=== PATIENT | male | born 1970 | race Caucasian/White ===

== ENCOUNTER 2024-06-20 12:10 | Inpatient (IN) | payer OTHER, SELFPAY ==
[2024-06-20 10:25] VITALS: BP 140/78
--- NOTE | 2024-06-20 10:29 | ED.GENMED ---
History of Present Illness
<Caroline Hooks PA-C - Last Filed: 06/20/24 11:20>
General
Chief Complaint: Skin Problem
Source: patient
Exam Limitations: none
Time Seen by Provider: 06/20/24 10:28
Nursing documentation reviewed up to this point in time: agreed with
History of Present Illness
History of Present Illness:
This is a 53-year-old male who presents emergency department today with complaints of redness and swelling in his left first finger. Patient reports that he was trying to get his cat into a cat carrier to go to the vet when he accidentally cut his
finger on a cat carrier was unsure if the cat scratched his finger as well. He reports that an hour or so later he started to have some redness and swelling around the site. Patient saw his primary care provider 3 days ago and was started on
Augmentin. Today he is currently on day 3 of Augmentin and states that the wound has not been getting better and states that the wound has started to drain on its own. He denies any fevers or chills, nausea or vomiting, abdominal pain, chest pain,
shortness of breath. He states that the pain will occasionally radiate into his hand but denies any swelling of his hand, lymphadenopathy, streaking up the arm
Past History
<Caroline Hooks PA-C - Last Filed: 06/20/24 11:20>
Past History
ED Past Medical History: None
ED Past Surgical History: None
Social History
Tobacco: Non-smoker
Review of Systems
<Caroline Hooks PA-C - Last Filed: 06/20/24 11:20>
Review of Systems
All Other Systems: ROS reviewed and negative except as documented in HPI and ROS
Phy Exam
<Caroline Hooks PA-C - Last Filed: 06/20/24 11:20>
Physical Exam
Physical Exam:
General: Patient is well appearing and in no acute distress; non-toxic
Skin: Area of fluctuance and erythema noted over the first dip with purulent drainage
Head: Normocephalic, atraumatic
Eyes: Sclera non-icteric. EOMs intact.
Cardiac: Regular rate and rhythm, no murmurs
Peripheral Vascular: Brisk capillary refill
Pulm: Normal respiratory effort
Musculoskeletal: Limited range of motion of left first finger, good extensor strength, tenderness to palpation over the left first DIP, no tenderness to palpation along the flexor sheath.
Neuro: CN II-XII intact, no focal neurologic deficits. Sensation intact.
Psychiatric: Appropriate mood and affect.
Course
<Caroline Hooks PA-C - Last Filed: 06/20/24 11:20>
Orders/Labs/Results
Orders:
Orders
06/20/24 10:54
Wound Culture [Wound/Abscess/Other Culture] Urgent
RADHA Source: Abscess
Specimen Description:
Date Specimen was Collected: 06/20/24
Time Specimen was Collected: 10:53
06/20/24 11:11
IV Insert/Care/Rem.- Treatment PRN
Tetanus/Diphth/Acelpertussis [Adacel] 0.5 ml IM .ONCE ONE
06/20/24 11:30
INFECTIOUS DISEASE CONSULT Routine
Consulting Provider: Keila Epperson
Was physician already notified: Yes
06/20/24 11:32
Complete Blood Count/With Diff Urgent
Comprehensive Metabolic Panel Urgent
06/20/24 11:45
Ampicillin/Sulbactam 3 G [Unasyn] 3 gm 0.9% Sodium Chloride 100 ml [Nss] 100 ml IV NOW
06/20/24 11:52
Admit/Transfer Patient As Directed
Co-Sign Provider:
Level of Care: Inpatient admission
Assign to:: Medical/Surgical
Physician / Group: Keshia/hospitalist
Diagnosis: finger cellulitis
Reason for Hospitalization: finger cellulitis
Expected length of stay greater than two midnights?: Yes
ELOS- Estimated Length of Stay in days: 3
I certify the patient meets the requirements for IP care: Yes
PRN Pain Medication Management As Directed
May give lesser potent ordered pain med per pt: Yes
preference::
Protocol:: Medication orders for pain may be administered in a
manner that supports deferring to patient preference
when the pt is:
- Requesting an ordered lesser potent pain medication.
Least to most potent pain medications are defined
as: acetaminophen < NSAID < tramadol < opioids
(morphine, oxycodone, hydromorphone).
- Requesting a lesser dose of the same medication IF
ORDERED.
- Requesting a less intrusive route of administration
if both routes are prescribed by the provider (PO <
IV).
06/20/24 11:53
Code Status As Directed
Resuscitation Status: Full Code
06/20/24 11:55
Add On- LAB Routine
Tests Added?: HgA1C
Vital Signs
Initial and Last Documented VS:
Initial Vital Signs
Temp Pulse Resp BP Pulse Ox
37.1 C 60 16 140/78 98
06/20/24 10:25 06/20/24 10:25 06/20/24 10:25 06/20/24 10:25 06/20/24 10:25
Last Documented Vital Signs
Temp Pulse Resp BP Pulse Ox
37.1 C 60 16 140/78 98
06/20/24 10:25 06/20/24 10:25 06/20/24 10:25 06/20/24 10:25 06/20/24 10:25
<Tenzin Guardado, - Last Filed: 06/20/24 11:57>
Orders/Labs/Results
Orders:
Orders
06/20/24 10:54
Wound Culture [Wound/Abscess/Other Culture] Urgent
RADHA Source: Abscess
Specimen Description:
Date Specimen was Collected: 06/20/24
Time Specimen was Collected: 10:53
06/20/24 11:11
IV Insert/Care/Rem.- Treatment PRN
Tetanus/Diphth/Acelpertussis [Adacel] 0.5 ml IM .ONCE ONE
06/20/24 11:30
INFECTIOUS DISEASE CONSULT Routine
Consulting Provider: Keila Epperson
Was physician already notified: Yes
06/20/24 11:32
Complete Blood Count/With Diff Urgent
Comprehensive Metabolic Panel Urgent
06/20/24 11:45
Ampicillin/Sulbactam 3 G [Unasyn] 3 gm 0.9% Sodium Chloride 100 ml [Nss] 100 ml IV NOW
06/20/24 11:52
Admit/Transfer Patient As Directed
Co-Sign Provider:
Level of Care: Inpatient admission
Assign to:: Medical/Surgical
Physician / Group: Keshia/hospitalist
Diagnosis: finger cellulitis
Reason for Hospitalization: finger cellulitis
Expected length of stay greater than two midnights?: Yes
ELOS- Estimated Length of Stay in days: 3
I certify the patient meets the requirements for IP care: Yes
PRN Pain Medication Management As Directed
May give lesser potent ordered pain med per pt: Yes
preference::
Protocol:: Medication orders for pain may be administered in a
manner that supports deferring to patient preference
when the pt is:
- Requesting an ordered lesser potent pain medication.
Least to most potent pain medications are defined
as: acetaminophen < NSAID < tramadol < opioids
(morphine, oxycodone, hydromorphone).
- Requesting a lesser dose of the same medication IF
ORDERED.
- Requesting a less intrusive route of administration
if both routes are prescribed by the provider (PO <
IV).
06/20/24 11:53
Code Status As Directed
Resuscitation Status: Full Code
06/20/24 11:55
Add On- LAB Routine
Tests Added?: HgA1C
Vital Signs
Initial and Last Documented VS:
Initial Vital Signs
Temp Pulse Resp BP Pulse Ox
37.1 C 60 16 140/78 98
06/20/24 10:25 06/20/24 10:25 06/20/24 10:25 06/20/24 10:25 06/20/24 10:25
Last Documented Vital Signs
Temp Pulse Resp BP Pulse Ox
37.1 C 60 16 140/78 98
06/20/24 10:25 06/20/24 10:25 06/20/24 10:25 06/20/24 10:25 06/20/24 10:25
<Caroline Hooks PA-C - Last Filed: 06/20/24 11:20>
MDM/Problems Addressed
Differential Diagnosis Includes:
cellulitis, abscess, flexor tenosynovitis
MDM/Problems Addressed:
53-year-old male presents emergency department today with redness and swelling of his left first finger following cat scratch/container cut 3 days ago. He has been on Augmentin this is his third day and he has not been improving. He has no fevers
or chills, no nausea or vomiting. He has limited range of motion of his finger on exam but he is intact sensation. There is purulent drainage from the wound, wound culture obtained. Discussed case with orthopedist on-call, pictures reviewed, we
will plan to admit for IV antibiotics and monitoring for improvement. Case discussed with hospitalist and my attending.
Chronic conditions affecting care:
hlp, htn
<Caroline Hooks PA-C - Last Filed: 06/20/24 11:20>
*Pulse Oximetry
Patient hypoxic: no
*Critical Care Note
Total Time (30-74mins, 75-104mins- exclusive of procedures): Not Applicable
Data Reviewed
Review of Other/Old Records Reveals: Records (Reviewed ER physician documentation from 03/12/2016, patient seen for contusion)
Source: patient and records
<Caroline Hooks PA-C - Last Filed: 06/20/24 11:20>
Patient Management
Escalation/DeEscalation of care consider admission/obs:
admission indicated
ED Attending Note
<Caroline Hooks PA-C - Last Filed: 06/20/24 11:20>
-
Portions of this chart may have been created with voice recognition software.� Occasional wrong word or��sound alike� substitutions may have occurred due to the inherent limitations of voice recognition software.
<Tenzin Guardado DO - Last Filed: 06/20/24 11:57>
ED Attending Note
Patient seen and examined by attending physician: Yes
I performed the substantive portion of visit, reviewed & personally made and approve the management plan that is documented in note by myself or LATOSHA.: Yes
ED Attending Note:
I evaluated patient at bedside. The patient does have purulent drainage from the dorsal aspect of the DIP. I did express additional pus and sending for culture. We contacted Ortho recommends admission with IV antibiotics.
Discharge Plan
Departure
Patient Disposition: Admit
Date of Disposition: 06/20/24
Time of Disposition: 11:20
Admit to: Med/Surg
Presentation/result/management discussed w/ accepting MD/DO: Hospitalist
Patient with high blood pressure during this ER visit?: Yes
Condition: Fair
Discharge Problem:
Cellulitis of left finger
Prescriptions:
No Action
atorvastatin 40 mg Tablet
40 mg PO DAILY
atenolol 50 mg Tablet
50 mg PO DAILY
escitalopram oxalate [Lexapro] 20 mg Tablet
20 mg PO DAILY
Referrals:
Zi Aquino MD [Family Provider] -
Interventions
Interventions:
*Risk Screen - Suicide Last Done: 06/20/24 10:25
*General Assessment Last Done: 06/20/24 10:57
*Neglect/Abuse Screening Last Done: 06/20/24 10:25
ED- Fall Risk Assessment Last Done: 06/20/24 10:57
ED-Skin Assessment Last Done: 06/20/24 10:57
Discharge Date and Time
Print Language: PANAMANIAN
[2024-06-20] MEDS: ADACEL 0.5 ML IM (11:26)
--- NOTE | 2024-06-20 11:31 | HPS.HSE ---
Family Physician
-
Family Physician: Zi Aquino
Chief Complaint
-
L index finger swelling and redness
History of Present Illness
HPI: 53-year-old male with PMH HTN, HLD, anxiety on Lexapro; p/w redness and swelling in his left index finger.
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 He was unsure if the cat scratched his finger as well. His cat is fully vaccinated.
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
His finger redness and swelling did not improve on oral Augmentin, hence he presented to the ED.
He has noted the wound has started to drain on its own.
He denies to any fevers/chills, nausea or vomiting, abdominal pain, chest pain, shortness of breath etc.
Medical History
Past Medical History
Past Medical History: Reports HTN, Hypercholesterolemia and Other (anxiety)
Past Surgical History: Reports Other
Additional Past Surgical History:
distant history of hernia repair
Social History
Tobacco: Non-smoker
Alcohol: Occasional
Personal:
Living: With Family
Family History
Family History: Not pertinent
Allergies / Home Medications
Allergies reflects when Allergies were last updated in [facility].
Home Medications with original date entered in [facility]
Allergy/Medication List:
Allergies
Allergy/AdvReac Type Severity Reaction Status Date / Time
No Known Allergies Allergy Verified 06/20/24 10:27
Home Medications
atenolol 50 mg tablet 50 mg PO DAILY 06/20/24
atorvastatin 40 mg tablet 40 mg PO DAILY 06/20/24
escitalopram oxalate 20 mg tablet (Lexapro) 20 mg PO DAILY 06/20/24
Review of Systems
-
Skin: Reports See HPI and Rash (L index finger )
Physical Exam
Vital Signs
Vital Signs
Temp Pulse Resp BP Pulse Ox
37.1 C 60 16 140/78 98
06/20/24 10:25 06/20/24 10:25 06/20/24 10:25 06/20/24 10:25 06/20/24 10:25
Physical Exam
General: Well Developed, Well Nourished, No Apparent Distress, Comfortable and Conversant
HEENT: NormoCephalic, Moist mucous membranes and Atraumatic
Respiratory: Clear and Accessory Resp Muscle Use; No Decreased Breath Sounds
Cardiac: S1/S2 and Regular Rhythm; No Murmur or Rub
GI: Soft, Non Tender, Non Distended and Normal Bowel Sounds; No Organomegaly
Rectal: Deferred by Provider
Musculoskeletal: No Clubbing, No Cyanosis and No Edema
Skin: Rash and Lesions (L index finger )
Neuro: Awake and Alert
Psych: Calm and Intact Judgment/Insight
Data Reviewed
-
Lab Data: Labs Reviewed by me
Impression/Plan
-
HPI: 53-year-old male with PMH HTN, HLD, anxiety on Lexapro; p/w redness and swelling in his left index finger.
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 He was unsure if the cat scratched his finger as well. His cat is fully vaccinated.
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
His finger redness and swelling did not improve on oral Augmentin, hence he presented to the ED.
He has noted the wound has started to drain on its own.
He denies to any fevers/chills, nausea or vomiting, abdominal pain, chest pain, shortness of breath etc.
A/P:
# cellulitis of left index finger
Follow wound culture
s/p Unasyn in ED, cont cefepime/vancomycin
ED discussed with Ortho, recc IV Abx and OR washout if not improving
ID CS
OT eval
Check A1C for completeness sake (Diabetics are prone to poor wound healing)
# HTN
cont CHEMICAL INSPECTOR Atenolol
# HTN
Cont CHEMICAL INSPECTOR Lipitor
# Anxiety
cont CHEMICAL INSPECTOR Lexapro
DVT ppx: Lovenox SQ
FC
[2024-06-20 11:35] VITALS: BMI 29.2
[2024-06-20 12:02] LABS: % Basophils 0.6 % (0-2); % Eosinophils 3.1 % (0-6); % Immature Granulocytes 0.4 % (0-0.5); % Lymphocytes 18.7 % (20.5-51.1); % Monocytes 8.2 % (1.7-9.3); Absolute Basophils 0.1 10^3/uL (0-0.2); Absolute Eosinophils 0.2 10^3/uL (0-0.7); Absolute Lymphocytes 1.5 10^3/uL (1.2-3.4); Absolute Monocytes 0.6 10^3/uL (0.1-0.6); Absolute Neutrophils 5.4 10^3/uL (1.4-6.5); Hematocrit 40.5 % (39.0-52.0); Hemoglobin 13.8 g/dL (13.0-18.0); Mean Corp Hgb Conc. 34.1 g/dL (33.0-37.0); Mean Corpuscular Hgb 30.7 pg (27.0-31.0); Mean Platelet Volume 10.5 fL (7.4-10.4); Nucleated Red Blood Cells % 0 % (-); Platelet Count 179 10^3/uL (130-400); Red Cell Dist. Width 12.6 % (11.5-14.5); White Blood Cell Count 7.8 10^3/uL (4.8-10.8)
[2024-06-20 12:04] LABS: ALT (SGPT) 23 U/L (0-50); AST (SGOT) 38 U/L (17-59); Albumin 4.2 g/dl (3.5-5.0); Alkaline Phosphatase 61 U/L (38-126); Blood Urea Nitrogen 23 mg/dl (9-20); Calcium 9.1 mg/dl (8.4-10.2); Carbon Dioxide 28 mmol/L (22-30); Chloride 104 mmol/L (98-107); Estimated Creatinine Clearance 82 ml/min; Glucose 115 mg/dl (70-99); Potassium 4.3 mmol/L (3.5-5.1); Sodium 140 mmol/L (135-145); Total Bilirubin 0.3 mg/dl (0.2-1.3); Total Protein 6.7 g/dl (6.3-8.2); eGFR > 60.00
[2024-06-20] MEDS: UNASYN IV (12:17)
[2024-06-20 14:31] VITALS: BP 145/87
[2024-06-20 14:34] VITALS: BMI 29.2
--- NOTE | 2024-06-20 14:38 | PHA.VAN.IN ---
Assessment
- Assessment
Renal Function: Unknown baseline
Renal Function may be Overestimated due to: BMI ALMOST 30
Concomitant Antimicrobials: CEFEPIME
AUC Dosing Plan
- Dosing Variables
Dosing Weight (kg): 87.12
Dosing CrCl (ml/min): 82
Vd coefficient (L/kg): 0.6
- Empiric Dosing
Initial / Loading Dose: 2000mg
Maintenance Regimen: 1000mg q12h
Estimated AUC (mcg*h/mL): 547
Estimated Peak (mcg*h/mL): 32.9
Estimated Trough (mcg/ml): 14.8
Estimated Half Life (H): 9.6
- Monitoring
No levels ordered at this time: consider at steady state
Pharmacokinetics Vancomycin I
- -
Patient Age: 53
Patient Sex: Male
Vancomycin Day #: 1
Indication: Skin And Soft Tissue
Requesting Provider: BETTY
Pertinent Antimicrobial Allergies:
NKDA
Height / Weight:
Height 5 ft 8 in
Actual Weight 87.118 kg
IBW in k.4
- Vital Signs / Lab Results
Temp Pulse Resp BP Pulse Ox
98.4 F 63 18 145/87 97
06/20/24 14:31 06/20/24 14:31 06/20/24 14:31 06/20/24 14:31 06/20/24 14:31
Lab Results - Hematology
06/20/24
11:32
WBC 7.8
Lab Results - Chemistry
06/20/24
11:32
BUN 23 H
Creatinine 1.0
Estimated Creat Clear 82
Albumin 4.2
--- NOTE | 2024-06-20 14:42 | CON.ID ---
Consultation
-
Date/Time Consultation Requested: June 20, 2024 1130
Date/Time Consultation Performed: June 20, 2024 1445
Requesting Provider: Dr. Kasia Schmitt
Performing Provider: Dr. Keila Epperson
Reason for Consultation: Cat bite finger infection
Chief Complaint / Past History
Chief Complaint
Left pointer finger swelling
History of Present Illness
53-year-old male with history of hypertension presented to the hospital today due to worsening left index finger swelling, redness, and pain. 6 days ago on Saturday, he tried to put his pet cat into the cat carrier to take him to the vet. Patient
had difficulty getting his cat into the cage and it was chaotic. He then noted a cut on the dorsum aspect of his distal left index finger. He is unsure whether or not the cut was from cat bite/scratch or from the cat carrier door. The finger
started to become red and swollen. His doctor put him on Augmentin 3 days ago. The redness and swelling progressed. He also noted pus drainage from the cut. He received tetanus shot in the ER today. Otherwise no fevers or chills. His cat is
fully vaccinated.
Past History
Additional Past Medical History:
Hypertension
HLD
Anxiety
Hernia repair
Allergy History:
No Known Allergies Allergy (Verified 06/20/24 10:27)
Medications Reviewed: Yes
Current Antibiotics:
Vancomycin
Cefepime
Social History
Tobacco: Non-Smoker
Alcohol: Occasional
Drug: None
Personal:
Family History
Family History: Not Pertinent
Review of Systems
Review of Systems
General: Negative Fever, Chills or Change in Appetite
HEENT: Negative Sinus Problems or Headache
Cardiovascular: Negative Chest Pain or Dyspnea
Respiratory: Negative Dyspnea or Cough
Gasteroenterology: Negative Nausea, Vomiting or Diarrhea
Genital / Urological: Negative Dysuria or Flank Pain
Endocrine: Negative Weakness
All systems: All other systems were reviewed and were negative
Vital Signs
Temp Pulse Resp BP Pulse Ox
98.4 F 63 18 145/87 97
06/20/24 14:31 06/20/24 14:31 06/20/24 14:31 06/20/24 14:31 06/20/24 14:31
Physical Exam
Physical Exam
Constitutional: No Acute Distress
Eyes: No Conjunctival Hemorrhage and Sclera Anicteric
Cardiovascular: Regular Rate and S1/S2
Pulmonary: Clear
Gastrointestinal: Soft, Non Tender, Non Distended and Normal Bowel Sounds
Genito-Urinary: Negative CVA Tenderness
Extremities: Negative Edema
Wound: Other (left distal phalange dorsal: + edema, erythema, purulent drainage from one end of slit-like wound. erythema extend just past DIPJ. )
Neurological: AO x 3
Lab / Diagnostic Study Results
06/20/24 11:32
06/20/24 11:32
Abs Immat Gran (auto) 0.0 10^3/uL (0-0.05) 06/20/24 11:32
Absolute Neuts (auto) 5.4 10^3/uL (1.4-6.5) 06/20/24 11:32
Absolute Lymphs (auto) 1.5 10^3/uL (1.2-3.4) 06/20/24 11:32
Absolute Monos (auto) 0.6 10^3/uL (0.1-0.6) 06/20/24 11:32
Absolute Basos (auto) 0.1 10^3/uL (0-0.2) 06/20/24 11:32
Immature Gran % 0.4 % (0-0.5) 06/20/24 11:32
Neutrophils % 69.0 % (42.2-75.2) 06/20/24 11:32
Lymphocytes % 18.7 % (20.5-51.1) L 06/20/24 11:32
Monocytes % 8.2 % (1.7-9.3) 06/20/24 11:32
Eosinophils % 3.1 % (0-6) 06/20/24 11:32
Basophils % 0.6 % (0-2) 06/20/24 11:32
Microbiology Results
Micro:
06/20/24 10:54 Wound Culture - Pending
Abscess Gram Stain - Pending
Assessment / Plan
# Left index finger cellulitis, wound with pus drainage.
- Source from cat bite/scratch vs laceration from cat carrier (pt unsure)
- Ordered hand xray.
- Pus cx pending.
- Continue Vanco/cefepime for now.
- Add metronidazole po.
- Will de-escalate abx when cx data available.
[2024-06-20 14:53] LABS: Glycohemoglobin (HgbA1c) 5.6 % (4.0-5.6)
[2024-06-20] MEDS: VANCOCIN 540 MG IV (15:13)
[2024-06-20] MEDS: STERILE WATER FOR INJECTION 10 ML IV ×2 (15:13→23:47)
[2024-06-20] MEDS: MAXIPIME 1000 MG IV ×2 (15:13→23:47)
--- NOTE | 2024-06-20 15:56 | CON.ORTHO ---
Consultation
-
Date/Time Consultation Requested: 06/20/2024
Date/Time Consultation Performed: 06/20/2024
Requesting Provider: Dr. Schmitt
Performing Provider: Tomeka Iyer PA-C, for Dr. Leslie
Reason for Consultation: Left index finger cat scratch; cellulitis
Consultation - Orthopedics
History
HPI: This is a 53-year-old male with a history of hypertension who presented to [facility] earlier today complaining of worsening left index finger swelling, redness, and pain. He states that on Saturday, he attempted to take his cat to the
vet, but in the process of placing him in the carrier, sustained a cut to the dorsum of his left index finger (unsure if a scratch from the cat was involved). He was seen outpatient by his nurse practitioner and placed on Augmentin. He took his
third dose today. He was also encouraged to do warm water soaks, but despite these interventions, experienced increasing redness, swelling, and purulent drainage today. This prompted him to present to the emergency department. He received a
tetanus shot in the ER today. He denies any fevers, chills, or flulike symptoms.
Past medical history: Hypertension, hyperlipidemia, anxiety.
Past surgical history: Hernia repair.
Social history: Denies tobacco use, occasional alcohol consumption. Lives at home with .
Review of systems: All systems reviewed and negative except for those mentioned in HPI.
Allergies / Home Medications
Allergy/AdvReac Type Severity Reaction Status Date / Time
No Known Allergies Allergy Verified 06/20/24 10:27
�Medication �Instructions �Recorded
amoxicillin 875 mg-potassium 1 tab PO BID 06/20/24
clavulanate 125 mg tablet
atenolol 50 mg tablet 50 mg PO DAILY 06/20/24
atorvastatin 40 mg tablet 40 mg PO DAILY 06/20/24
escitalopram oxalate 20 mg tablet 20 mg PO DAILY 06/20/24
(Lexapro)
ibuprofen 200 mg tablet 600 mg PO TIDPRN PRN mild pain 06/20/24
Vital Signs / Lab Results
Temp Pulse Resp BP Pulse Ox
98.4 F 63 18 145/87 97
06/20/24 14:31 06/20/24 14:31 06/20/24 14:31 06/20/24 14:31 06/20/24 14:31
06/20/24 11:32
06/20/24 11:32
Physical examination:
General: Well-developed, well-nourished male in no acute distress. AAOx4.
HEENT: Atraumatic, normocephalic, neck supple.
Lungs: Nonlabored breathing on room air, no audible wheezing.
Heart: Regular rate and rhythm.
Left hand: Index finger with slitlike cut on dorsal aspect of the digit just below the fingernail. Erythema extending down to the DIPJ. Tenderness to palpation over this area, but minimal tenderness to palpation over the DIP joint. Full range of
motion with some discomfort on full flexion of the DIP joint. Remainder of hand, including flexor tendons, nontender to palpation
Radiographic studies:
X-ray of the left hand from 06/20/2024 shows no evidence of acute osseous abnormality. There is a calcification adjacent to the DIP joint
Assessment / Plan
Assessment: Left index finger cellulitis.
Plan: Patient seen in tandem with Dr. Leslie. Currently, he does have cellulitis and a draining wound over the dorsum of his left index finger. He has been transitioned to IV antibiotics per Dr. Epperson of infectious disease. Wound care consult has
also been placed. For the time being, we recommend that he initiate warm water soaks 5 to 10 minutes at a time, 3 times a day. He may continue with motion to tolerance. Currently, no surgical intervention is recommended, but we will continue to
follow along to check his response to the IV antibiotics. all questions were answered and patient was in agreement with treatment recommendations
[2024-06-20] MEDS: LOVENOX 40 MG SC (17:59)
[2024-06-20] MEDS: FLAGYL 500 MG PO (20:00)
[2024-06-20 23:10] VITALS: BP 118/66
[2024-06-20] MEDS: FLUSH (NSS) 2 FLUSH IV (23:48)
[2024-06-21] MEDS: VANCOCIN 200 IV ×2 (05:32→17:12)
[2024-06-21] MEDS: FLUSH (NSS) 2 FLUSH IV (05:33)
[2024-06-21 07:00] VITALS: BP 121/74
[2024-06-21 07:19] LABS: Hematocrit 38.5 % (39.0-52.0); Hemoglobin 13.4 g/dL (13.0-18.0); Mean Corp Hgb Conc. 34.8 g/dL (33.0-37.0); Mean Corpuscular Hgb 31.1 pg (27.0-31.0); Mean Corpuscular Volume 89.3 fL (80.0-94.0); Mean Platelet Volume 10.1 fL (7.4-10.4); Platelet Count 167 10^3/uL (130-400); Red Blood Cell Count 4.31 10^6/uL (4.70-6.10); Red Cell Dist. Width 12.5 % (11.5-14.5); White Blood Cell Count 7.3 10^3/uL (4.8-10.8)
[2024-06-21 07:49] LABS: Blood Urea Nitrogen 17 mg/dl (9-20); Calcium 8.5 mg/dl (8.4-10.2); Carbon Dioxide 29 mmol/L (22-30); Chloride 103 mmol/L (98-107); Estimated Creatinine Clearance 74 ml/min; Glucose 120 mg/dl (70-99); Magnesium 2.2 mg/dl (1.6-2.3); Potassium 4.2 mmol/L (3.5-5.1); Sodium 140 mmol/L (135-145); eGFR > 60.00
[2024-06-21] MEDS: LIPITOR 40 MG PO (08:03)
[2024-06-21] MEDS: FLAGYL 500 MG PO ×2 (08:03→20:32)
[2024-06-21] MEDS: LEXAPRO 20 MG PO (08:03)
[2024-06-21] MEDS: STERILE WATER FOR INJECTION 10 ML IV ×3 (08:04→22:54)
[2024-06-21] MEDS: MAXIPIME 1000 MG IV ×3 (08:04→22:55)
[2024-06-21] MEDS: TENORMIN 50 MG PO (08:04)
--- NOTE | 2024-06-21 08:36 | PHA.VAN.FU ---
Vancomycin Assessment / Plan
- Assessment
Renal Function: Stable
WBC's are: WNL
In the past 24 hrs, patient has been: Afebrile
Concomitant Antimicrobials: CEFEPIME, METRONIDAZOLE
- Dosing Plan
Continue: 1000MG Q12H
- Monitoring Plan
Peak Level: 06/22 @2030
Trough Level: 06/23 @0530
- Follow Up
Pharmacy will continue to follow.
Vancomycin Follow UP
- -
Patient Age: 53
Patient Sex: Male
Vancomycin Day #: 2
Indication: Skin And Soft Tissue
Requesting Provider: BETTY
Pertinent Antimicrobial Allergies:
NKDA
Height / Weight:
Height 5 ft 8 in
Actual Weight 87.118 kg
IBW in k.4
- Vital Signs / Lab Results
Temp Pulse Resp BP Pulse Ox
98.0 F 57 16 121/74 98
06/21/24 07:00 06/21/24 08:04 06/21/24 07:00 06/21/24 08:04 06/21/24 07:00
Lab Results - Hematology
06/20/24 06/21/24
11:32 06:51
WBC 7.8 7.3
Lab Results - Chemistry
06/20/24 06/21/24
11:32 06:51
BUN 23 H 17
Creatinine 1.0 1.1
Estimated Creat Clear 82 74
Albumin 4.2
Microbiology Results
06/20/24 10:54 Gram Stain - Preliminary
Abscess
--- NOTE | 2024-06-21 11:00 | W.PN.UPDATE ---
Update Note
Progress Note Update
Nayan is a 53-year-old male who was admitted to [facility] for IV antibiotics due to increased redness and swelling of his index finger.
He reports less pain and swelling with the IV antibiotics overnight. The erythema has slightly improved from previous markings. There is significantly less tenderness to palpation over the distal aspect of the finger. No fluctuance. No
expressible drainage today. Limited range of motion of the DIP joint and PIP joint. He was noted to have a mallet deformity of the distal aspect of the index finger. Crepitus noted with full extension of the DIP joint.
X-rays per report are negative, however, per my review, there is a calcification adjacent to the DIP joint, consistent with a bony mallet injury. Imaging and case was reviewed with Dr. García. He will need to be splinted over the DIP joint of the
left index finger full-time to treat the mallet deformity. Unfortunately, the wound is on the dorsal aspect of his finger where we would typically apply the splint. We will consult OT for custom splint. For today, he may continue with his warm
water soaks as previously recommended. Continue with IV antibiotics per infectious disease. Cultures still pending. Will continue to follow.
--- NOTE | 2024-06-21 11:16 | W.PN.HOSP.TC ---
Today's Communication/Plan
-
see A/P
Assessment / Plan
Assessment / Plan
HPI: 53-year-old male with PMH HTN, HLD, anxiety on Lexapro; p/w redness and swelling in his left index finger.
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 He was unsure if the cat scratched his finger as well. His cat is fully vaccinated.
His finger turned red and swollen and his PCP started him on Augmentin 3 days CORPORATE TRAVEL COORDINATOR.
His finger redness and swelling did not improve on oral Augmentin, hence he presented to the ED.
He has noted the wound has started to drain on its own.
He denies to any fevers/chills, nausea or vomiting, abdominal pain, chest pain, shortness of breath etc.
A/P:
# cellulitis of left index finger, from cat bite/scratch vs laceration from cat carrier (pt unsure)
Follow wound culture
s/p Unasyn in ED, cont cefepime/vancomycin/flagyl
ID on board
Ortho on board, noted possible calcification adjacent to the DIP joint, consistent with a bony mallet injury. Recc splinting over the DIP joint of the left index finger full-time to treat the mallet deformity.
Consult OT for custom splint.
Cont warm water soaks
# Diarrhea likely 2/2 Abx S/E
check C diff and Norovirus to rule out, if negative, can start PRN loperamide
# HTN
cont CORPORATE TRAVEL COORDINATOR Atenolol
# HTN
Cont CORPORATE TRAVEL COORDINATOR Lipitor
# Anxiety
cont CORPORATE TRAVEL COORDINATOR Lexapro
DVT ppx: Lovenox SQ
FC
DW at bedside
Anticipated Discharge: 24 - 48 hours
Subjective/Interval History
-
Date of Service: June 21, 2024
Objective Data
-
Labs:
Laboratory Results
06/21/24
06:51
WBC 7.3
Hgb 13.4
Hct 38.5 L
Plt Count 167
Sodium 140
Potassium 4.2
Chloride 103
Carbon Dioxide 29
BUN 17
Creatinine 1.1
Glucose 120 H
Calcium 8.5
Vital Signs:
Vital Signs
Temp Pulse Resp BP Pulse Ox
36.7 C 57 16 121/74 98
06/21/24 07:00 06/21/24 08:04 06/21/24 07:00 06/21/24 08:04 06/21/24 07:00
I&O
06/20/24 06/21/24 06/22/24
06:59 06:59 06:59
Intake Total 200 / 200 190 / 190
Balance 200 / 200 190 / 190
Review of Systems
-
All other systems: Reviewed and negative
Physical Exam
-
General: Well Developed, Well Nourished, No Apparent Distress, Comfortable and Conversant; Negative Respiratory Distress
HEENT: Normocephalic, Atraumatic, Nose Appears Normal and Ears Appear Normal; Negative Oxygen
Respiratory: Clear to Auscultation and Non Labored Respirations; Negative Accessory Resp Muscle Use
Cardiac: Regular Rhythm and S1/S2
GI: Soft, Nontender, Nondistended and Normal Bowel Sounds
Skin: Other (L index finger redness and swelling )
Neuro: Awake, Alert, Oriented, AO x 3 and Nonfocal/Grossly Intact
Psych: Calm and Intact Judgement/Insight
Data Reviewed
-
Diagnostic Radiology: Report Reviewed by me
Labs: Labs Reviewed by me
[2024-06-21] MEDS: IMODIUM 2 MG PO ×2 (11:56→17:20)
--- NOTE | 2024-06-21 13:02 | W.PN.ID1 ---
Date of Service
Date of Service: June 21, 2024
Today's Communication
Continue abx's pending cx data.
Assessment / Plan
# Left index finger cellulitis, wound with pus drainage.
- Source from cat bite/scratch vs laceration from cat carrier (pt unsure)
- Pus cx pending.
- Continue Vanco/cefepime, po metronidazole for now.
- Will de-escalate abx when cx data available.
Chief Complaint
-: Cellulitis
Subjective / Review of Systems
Finger with less pain.
Vital Signs / Physical Exam
Vital Signs
Vital Signs
Temp Pulse Resp BP Pulse Ox
98.0 F 57 16 121/74 98
06/21/24 07:00 06/21/24 08:04 06/21/24 07:00 06/21/24 08:04 06/21/24 07:00
Physical Exam
Constitutional: No Acute Distress and Comfortable
Cardiovascular: Regular Rate and S1/S2
Pulmonary: Clear
Gastrointestinal: Soft, Non Tender and Non Distended
Extremities: Other (left index finger erythema receding)
Neurological: AO x 3
Objective Data
Lab Data
Lab Results
06/21/24 06:51
06/21/24 06:51
Estimated Creat Clear 74 ml/min 06/21/24 06:51
Total Bilirubin 0.3 mg/dl (0.2-1.3) 06/20/24 11:32
AST 38 U/L (17-59) 06/20/24 11:32
ALT 23 U/L (0-50) 06/20/24 11:32
Alkaline Phosphatase 61 U/L (38-126) 06/20/24 11:32
Most recent labs reviewed.
Micro Results:
06/21/24 10:42 C. difficile GDH Antigen & Toxins - Final
Feces/Stool Negative for toxigenic C.difficile
- Final
Negative for Norovirus GI and GII.
06/20/24 15:45 MRSA Screen - Pending
Nose
06/20/24 10:54 Wound Culture - Pending
Abscess Gram Stain - Preliminary
06/20/24 Hand XRAY: No acute osseous abnormality or radiopaque soft tissue foreign body.
[2024-06-21] MEDS: MOTRIN 200 MG PO (14:00)
[2024-06-21 15:00] VITALS: BP 129/70
--- NOTE | 2024-06-21 15:55 | CM ---
Cm reviewed medical records. Patient lives independently. No history of VN, SNF or DME. Patient is active with PCP. [facility] for medication services.
PLAN: Home needs needs.
[2024-06-21] MEDS: LOVENOX SC (17:07)
[2024-06-21 23:04] VITALS: BP 120/68
[2024-06-22] MEDS: VANCOCIN 200 IV (05:01)
[2024-06-22 07:50] VITALS: BP 119/63
[2024-06-22 08:10] LABS: Hemoglobin 14.2 g/dL (13.0-18.0); Mean Corp Hgb Conc. 34.6 g/dL (33.0-37.0); Mean Corpuscular Volume 89.5 fL (80.0-94.0); Mean Platelet Volume 10.4 fL (7.4-10.4); Platelet Count 171 10^3/uL (130-400); Red Blood Cell Count 4.58 10^6/uL (4.70-6.10); Red Cell Dist. Width 12.5 % (11.5-14.5); White Blood Cell Count 7.5 10^3/uL (4.8-10.8)
[2024-06-22] MEDS: TENORMIN 50 MG PO (08:27)
[2024-06-22] MEDS: LIPITOR 40 MG PO (08:27)
[2024-06-22] MEDS: FLAGYL 500 MG PO (08:27)
[2024-06-22] MEDS: LEXAPRO 20 MG PO (08:27)
[2024-06-22] MEDS: STERILE WATER FOR INJECTION 10 ML IV (08:28)
[2024-06-22] MEDS: MAXIPIME 1000 MG IV (08:28)
--- NOTE | 2024-06-22 08:49 | W.PN.UPDATE ---
Update Note
Progress Note Update
He reports even less pain and swelling with the IV antibiotics overnight. The erythema has improved from previous markings. There is significantly less tenderness to palpation over the distal aspect of the finger. No fluctuance. No expressible
drainage today. Limited range of motion of the DIP joint and PIP joint. He was noted to have a mallet deformity of the distal aspect of the index finger. Dressing in place.
X-rays per report are negative, however there is a calcification adjacent to the DIP joint, consistent with a bony mallet injury. Imaging and case was reviewed with Dr. García yesterday. He will need to be splinted over the DIP joint of the left
index finger full-time to treat the mallet deformity. Unfortunately, the wound is on the dorsal aspect of his finger where we would typically apply the splint. We will consult OT for custom splint. continue with his warm water soaks as previously
recommended. Continue with IV antibiotics per infectious disease. Cultures NGTD. Will continue to follow.
[2024-06-22 08:51] LABS: Blood Urea Nitrogen 18 mg/dl (9-20); Calcium 8.9 mg/dl (8.4-10.2); Carbon Dioxide 31 mmol/L (22-30); Chloride 100 mmol/L (98-107); Estimated Creatinine Clearance 74 ml/min; Glucose 91 mg/dl (70-99); Sodium 138 mmol/L (135-145); eGFR > 60.00
--- NOTE | 2024-06-22 09:06 | W.PN.HOSP.TC ---
Addendum entered and electronically signed by Kary Schmitt MD 06/22/24 12:44:
I saw and evaluated the patient. I reviewed the resident�s note and agree with findings and plan as documented in the resident�s note.
A/P:
# cellulitis of left index finger, from cat bite/scratch vs laceration from cat carrier (pt unsure)
wound culture no growth
s/p Unasyn in ED, then cefepime/vancomycin/flagyl -> discharged with Augmentin 875mg po bid x 8 more days.
Appreciate ID input
Special/custom splinting with outpt OT
# Diarrhea likely 2/2 Abx S/E
C diff and Norovirus ruled out
Anticipate diarrhea will be better when off IV Abx
# HTN
cont MEASUREMENT AND VERIFICATION ENGINEER Atenolol
# HTN
Cont MEASUREMENT AND VERIFICATION ENGINEER Lipitor
# Anxiety
cont MEASUREMENT AND VERIFICATION ENGINEER Lexapro
DVT ppx: Lovenox SQ
FC
DW RN
Original Note:
Today's Communication/Plan
-
D/c on PO augmentin x8 days
Assessment / Plan
Assessment / Plan
53-year-old male
#Cellulitis of R index finger w/ drainage vs. abscess
- Wound c/x show NGTD. Negative MRSA screen. CXR showing calcification adjacent to the DIP joint, consistent with a bony mallet injury but no osseous abnormalities or radiopaque soft tissue abnormality.
- Ortho rec splinting over the DIP joint of the left index finger full-time to treat the mallet deformity; will give OT script on d/c
- Seen by ID, cleared to restart Augmentin 875 x 8d
# Diarrhea, likely secondary to antibiotics - C.diff/Noro virus negative. Immodium prn.
# Hypertension - c/w atenolol
# Hyperlipemia - c/w Lipitor
# Anxiety - c/w Lexapro
Diet - full
DVT ppx: Lovenox SC
Code Status - Full Code
Anticipated Discharge: Today
Subjective/Interval History
-
Feeling well this morning, pain and swelling in the finger significantly reduced. No fevers or chills overnight. No new episodes of diarrhea, abd pain N/V.
Objective Data
-
Labs:
Laboratory Results
06/22/24
07:32
WBC 7.5
Hgb 14.2
Hct 41.0
Plt Count 171
Sodium 138
Potassium 4.0
Chloride 100
Carbon Dioxide 31 H
BUN 18
Creatinine 1.1
Glucose 91
Calcium 8.9
Vital Signs:
Vital Signs
Temp Pulse Resp BP Pulse Ox
98.4 F 55 16 119/63 97
06/22/24 07:50 06/22/24 08:27 06/22/24 07:50 06/22/24 08:27 06/22/24 07:50
I&O
06/21/24 06/22/24 06/23/24
06:59 06:59 06:59
Intake Total 200 / 200 1320 / 1320
Balance 200 / 200 1320 / 1320
Review of Systems
-
History Source: Patient
All other systems: Reviewed and negative
Constitutional: Reports No Symptoms
EENT: Reports No Symptoms Reported
Respiratory: Reports No Symptoms
Cardiac: Reports No Symptoms
Abdomen/GI: Reports No Symptoms
Breast: Reports N/A
Genitourinary: Reports No Symptoms
Musculoskeletal: Reports Joint Swelling (R index finger; improved); Denies Joint Pain or Muscle Pain
Skin: Reports No Symptoms
Neuro: Reports No Symptoms
Physical Exam
-
General: Well Developed, Well Nourished, No Apparent Distress, Comfortable and Conversant
HEENT: Normocephalic, [place] Conjunctivae, PERRLA, Nose Appears Normal and Ears Appear Normal
Respiratory: Clear to Auscultation; Negative Wheezes, Rales or Rhonchi
Cardiac: Regular Rhythm and S1/S2; Negative Murmur or Rub
Breast: N/A
GI: Soft, Nontender and Nondistended
Genito-urinary: Deferred by me
Musculoskeletal: No Clubbing, No Cyanosis and Other (R index finger erythema/swelling, reduced from prior marking. Open lesion 2-4mm draining minimal/no serosanguineous fluid. Non-tender to palpation. Neurovascularly intact. Non-tender R sided DIP,
PIP, MCP, wrist joints)
Neuro: Awake, Alert and Oriented
Hematologic / Lymphatic: Other (No R axillary lymphadenopathy)
--- NOTE | 2024-06-22 10:19 | W.PN.ID1 ---
Date of Service
Date of Service: June 22, 2024
Today's Communication
Can dc home and resume prior Augmentin 875mg po bid x 8 more days.
Assessment / Plan
# Left index finger cellulitis, wound with pus drainage, improving
- Source from cat bite/scratch vs laceration from cat carrier (pt unsure)
- Pus cx neg to date (pt on Augmentin)
- DC Vanco/cefepime, po metronidazole
- Can dc home and resume prior Augmentin 875mg po bid x 8 more days.
Chief Complaint
-: Cellulitis
Subjective / Review of Systems
Finger better.
Vital Signs / Physical Exam
Vital Signs
Vital Signs
Temp Pulse Resp BP Pulse Ox
98.4 F 55 16 119/63 97
06/22/24 07:50 06/22/24 08:27 06/22/24 07:50 06/22/24 08:27 06/22/24 07:50
Physical Exam
Pulmonary: Clear
Gastrointestinal: Soft, Non Tender, Non Distended and Normal Bowel Sounds
Extremities: Other (L index finger, distal phalange decreased induraion, erythema, no drainage)
Neurological: AO x 3
Objective Data
Lab Data
Lab Results
06/22/24 07:32
06/22/24 07:32
Estimated Creat Clear 74 ml/min 06/22/24 07:32
Total Bilirubin 0.3 mg/dl (0.2-1.3) 06/20/24 11:32
AST 38 U/L (17-59) 06/20/24 11:32
ALT 23 U/L (0-50) 06/20/24 11:32
Alkaline Phosphatase 61 U/L (38-126) 06/20/24 11:32
Most recent labs reviewed.
Micro Results:
06/20/24 15:45 MRSA Screen - Final
Nose No Methicillin Resistant Staphylococcus aureus isolated.
06/20/24 10:54 Wound Culture - Preliminary
Abscess No growth
Gram Stain - Preliminary
06/21/24 10:42 C. difficile GDH Antigen & Toxins - Final
Feces/Stool Negative for toxigenic C.difficile
- Final
Negative for Norovirus GI and GII.
06/20/24 Hand XRAY: No acute osseous abnormality or radiopaque soft tissue foreign body.
--- NOTE | 2024-06-22 11:32 | CM ---
CM reviewed pt with attending and resident
Cleared for dc- no need for IV abx on dc
Pt will require hand therapy
Hard script for outpt OT provided
MANI provided Outpt OT info to pt
He has called to schedule appt
Discharge Disposition- home with outpt hand OT at
--- NOTE | 2024-06-22 11:39 | WOUNDNOTE ---
TONG RN NOTE: Patient admitted with L finger cellulitis, reviewed PMH and reports. Finger being fitted with splint by OT at time off assessment. Applied 2x2 gauze and silicone tape before splint applied. Patient has been doing Hibiclens in warm soaks
as previously ordered by ortho. Patient for discharge today, updated discharge instructions and nurse Ranjit. Will confirm the above with hospitalist and recommend patient follow up with wound care center if does not heal.
[2024-06-22 12:06] VITALS: BP 126/66
--- NOTE | 2024-06-22 15:41 | W.DCSUMMARY ---
Documented by User: Storm Palacios MD, Resident 06/22/24 15:56
Discharge Summary
Discharge Data
Date of Admission: 06/20/24
Date of Discharge: 06/22/24
Total time spent discharging patient (in min): >30min
-
Pending Results: No
Hospital Course
Discharging Physician : Dr. Storm Palacios, Dr. Kary Schmitt
Disposition : Home
Primary care physician : Zi Aquino
Principal Discharge diagnosis : Cellulitis of the left index finger with drainage
Chronic Discharge diagnosis : none
Hospital Course :
Nayan Sanabria presented to the [facility] for complaints of finger swelling, pain, redness that started several days ago after attempting to get his cat into a carrier. Of note, he had been put on Augmentin at onset of symptoms three days ago. He was
admitted for persistent symptoms of swelling, pain, redness, drainage of the left finger, despite antibiotic treatment. Cultures were taken from the wound drainage. He was started on IV Vancomycin, Cefepime and Flagyl to cover for anaerobes as the
patient was uncertain whether or not his cat had bit him. An xray of the hand was done which showed no acute osseous abnormalities. During his stay, the patient also experienced an episode of diarrhea, for which stool studies were done, which were
negative for C diff antigen/toxin and norovirus. He remained stable throughout his admission on IV antibiotics until his wound cultures came back after 48 hours with no growth. He was then transitioned back to his oral augmentin and discharged on an
8 day course and given instructions to follow up with his PCP in <1 week.
He was also seen by orthopedic specialists who noted a mallet deformity of the affected finger. He was given a script to see Occupational Therapy as an outpatient for a custom splint to treat the mallet deformity.
Important imaging findings :
CR Hand - Left Min 3 Views:
No acute osseous abnormality or radiopaque soft tissue foreign body.
Procedure findings : none
Discharge Plan
-
Patient Disposition: Home (Routine Discharge)
Discharge Diagnosis/Procedures: Right Finger Cellulitis with drainage
Condition: Good
Diet: No restrictions
Activity: No restrictions
Activity Restrictions/Additional Instructions:
Wound Care Instructions
L FINGER: Continue warm soaks as directed, cover with 2x2 gauze and silicone tape until closed.
Can add Neosporin under gauze if wound becomes too dry.
Follow up at wound care center* If finger does not heal, call for an appointment.
Script given for Occupational Therapy for a custom finger splint for mallet deformity
Referrals:
Zi Aquino MD [Family Provider] - in less than 1 week
Additional Discharge Medication Instructions: Resume taking Augmentin (Amoxicillin-pot clavulanate) for 8 days as directed.
You may take an over the counter probiotic/eat yogurt or probiotic foods to prevent further diarrhea; be sure to take the probiotic/yogurt at least one hour after antibiotics.
If you develop profuse watery diarrhea, multiple episodes per day while taking the antibiotic, call your primary care physician.
Prescriptions:
New
amoxicillin-pot clavulanate 875-125 mg tablet
1 tab PO BID 8 Days Qty: 16 0RF
Continued
atorvastatin 40 mg Tablet
40 mg PO DAILY
atenolol 50 mg Tablet
50 mg PO DAILY
escitalopram oxalate [Lexapro] 20 mg Tablet
20 mg PO DAILY
ibuprofen 200 mg Tablet
600 mg PO TIDPRN PRN (Reason: mild pain)
Discontinued
amoxicillin-pot clavulanate 875-125 mg Tablet
1 tab PO BID
Discharge Orders:
Discharge Patient (As Directed); Ordered 06/22/24
Ordered By: Storm Palacios
Discharge Date and Time
Discharge Date/Time: 06/22/24 12:15
Print Language: GEORGIAN

Documented by User: Kary Schmitt MD 06/22/24 16:20
Discharge Summary
Discharge Data
Date of Admission: 06/20/24
Date of Discharge: 06/22/24
Hospital Course
Discharging Physician : Dr. Storm Palacios, Dr. Kary Schmitt
Disposition : Home
Primary care physician : Zi Aquino
Principal Discharge diagnosis : Cellulitis of the left index finger with drainage
Chronic Discharge diagnosis : none
Hospital Course :
Nayan Sanabria presented to the ED for complaints of left index finger swelling, pain, redness that started several days ago after attempting to get his cat into a carrier. Of note, he was put on Augmentin by his PCP three days ago prior to
admission. He was admitted for persistent symptoms of swelling, pain, redness, drainage of the left finger, despite antibiotic treatment. Cultures were taken from the wound drainage and it was negative for growth. He was started on IV Vancomycin,
Cefepime and Flagyl and was discharged on oral Augmentin for 8 more days per ID.
During his stay, the patient also experienced an episode of diarrhea, for which stool studies were done, which were negative for C diff antigen/toxin and norovirus. His diarrhea was likely related to IV antibiotic.
He was also seen by orthopedic specialists who noted a mallet deformity of the affected finger. He was given a script to see Occupational Therapy as an outpatient for a custom splint to treat the mallet deformity.
Important imaging findings :
CR Hand - Left Min 3 Views:
No acute osseous abnormality or radiopaque soft tissue foreign body.
Procedure findings : none
Discharge Plan
-
Patient Disposition: Home (Routine Discharge)
Discharge Diagnosis/Procedures: Right Finger Cellulitis with drainage
Condition: Good
Diet: No restrictions
Activity: No restrictions
Activity Restrictions/Additional Instructions:
Wound Care Instructions
L FINGER: Continue warm soaks as directed, cover with 2x2 gauze and silicone tape until closed.
Can add Neosporin under gauze if wound becomes too dry.
Follow up at wound care center* If finger does not heal, call for an appointment.
Script given for Occupational Therapy for a custom finger splint for mallet deformity
Referrals:
Zi Aquino MD [Family Provider] - in less than 1 week
Additional Discharge Medication Instructions: Resume taking Augmentin (Amoxicillin-pot clavulanate) for 8 days as directed.
You may take an over the counter probiotic/eat yogurt or probiotic foods to prevent further diarrhea; be sure to take the probiotic/yogurt at least one hour after antibiotics.
If you develop profuse watery diarrhea, multiple episodes per day while taking the antibiotic, call your primary care physician.
Prescriptions:
New
amoxicillin-pot clavulanate 875-125 mg tablet
1 tab PO BID 8 Days Qty: 16 0RF
Continued
atorvastatin 40 mg Tablet
40 mg PO DAILY
atenolol 50 mg Tablet
50 mg PO DAILY
escitalopram oxalate [Lexapro] 20 mg Tablet
20 mg PO DAILY
ibuprofen 200 mg Tablet
600 mg PO TIDPRN PRN (Reason: mild pain)
Discontinued
amoxicillin-pot clavulanate 875-125 mg Tablet
1 tab PO BID
Discharge Orders:
Discharge Patient (As Directed); Ordered 06/22/24
Ordered By: Storm Palacios
Discharge Date and Time
Discharge Date/Time: 06/22/24 12:15
Print Language: GEORGIAN
== END 2024-06-22 12:15 | disposition home or self-care (01) | DRG 603 ==
LOC: 1 ACUTE 12:10
PROVIDERS: Physician Assistant; ADMITTING PHYSICIAN Internal Medicine; CONSULT PHYSICIAN Internal Medicine Infectious Disease; CONSULT PHYSICIAN Specialist; EMERGENCY PHYSICIAN Emergency Medicine; FAMILY PHYSICIAN Internal Medicine
PROC: 3E0234Z Introduction of Serum, Toxoid and Vaccine into Muscle, Percutaneous Approach (ICD-10-PCS; 2024-06-20)
DX: L03.012 Cellulitis of left finger (principal); K52.1 Toxic gastroenteritis and colitis; I10 Essential (primary) hypertension; M20.012 Mallet finger of left finger(s); E78.00 Pure hypercholesterolemia, unspecified; S60.941A Unspecified superficial injury of left index finger, initial encounter; T36.8X5A Adverse effect of other systemic antibiotics, initial encounter; F41.9 Anxiety disorder, unspecified; Z79.899 Other long term (current) drug therapy; Z23 Encounter for immunization; W55.01XA Bitten by cat, initial encounter; W55.03XA Scratched by cat, initial encounter
CPT/HCPCS: 73130; 80048; 80053; 83036; 83735; 85025; 85027; 87070; 87205; 87324; 87449; 87798; 90471; 90715; 96374; 97165; 97760; 99284

== ENCOUNTER 2024-06-23 08:26 | Outpatient (RCR) | payer OTHER, SELFPAY | END 2024-06-23 23:59 | disposition home or self-care (01) | LOC: ROT 08:26 | PROVIDERS: ATTENDING PHYSICIAN Orthopaedic Surgery Hand Surgery; FAMILY PHYSICIAN Internal Medicine | DX: M20.012 Mallet finger of left finger(s) (principal); S60.411D Abrasion of left index finger, subsequent encounter; Z73.6 Limitation of activities due to disability | CPT/HCPCS: 97760 ==

== ENCOUNTER → 2024-07-24 17:20 | Outpatient (REF) | payer OTHER, SELFPAY | LOC: MRI 3T 17:20 | PROVIDERS: ATTENDING PHYSICIAN Specialist; FAMILY PHYSICIAN Internal Medicine | DX: G31.84 Mild cognitive impairment of uncertain or unknown etiology (principal) | CPT/HCPCS: 70553; A9575 ==

== ENCOUNTER → 2024-09-01 08:55 | Outpatient (REF) | payer OTHER, SELFPAY | LOC: REG 08:55 | PROVIDERS: ATTENDING PHYSICIAN Hospitalist | DX: M79.645 Pain in left finger(s) (principal) | CPT/HCPCS: 73130 ==

== ENCOUNTER → 2024-09-04 17:24 | Outpatient (REF) | payer OTHER, SELFPAY | LOC: MRI 17:24 | PROVIDERS: ATTENDING PHYSICIAN Hospitalist | DX: M86.9 Osteomyelitis, unspecified (principal); M00.9 Pyogenic arthritis, unspecified | CPT/HCPCS: 73218 ==